=== PATIENT | male | born 1985 | race African-American/Black ===

== ENCOUNTER 2019-03-12 17:57 | Emergency (ER) | payer MEDICAID, SELFPAY ==
[2019-03-12 17:59] VITALS: BP 137/82; PULSE 82; RESP 16; TEMP 36.8; O2SAT 100; BMI 26.6
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
[2019-03-12] MEDS: Acetaminophen 500 MG Tablet 1000 MG PO (19:36)
[2019-03-12 20:22] VITALS: BP 132/80; PULSE 84; RESP 17; O2SAT 97
== END 2019-03-12 20:21 | disposition home or self-care (01) ==
PROVIDERS: Emergency Provider Emergency Medicine
DX: S06.0X9A Concussion with loss of consciousness of unspecified duration, initial encounter (principal); S16.1XXA Strain of muscle, fascia and tendon at neck level, initial encounter; S29.012A Strain of muscle and tendon of back wall of thorax, initial encounter; S39.012A Strain of muscle, fascia and tendon of lower back, initial encounter; S63.601A Unspecified sprain of right thumb, initial encounter; V89.2XXA Person injured in unspecified motor-vehicle accident, traffic, initial encounter; Y93.9 Activity, unspecified; Y92.9 Unspecified place or not applicable
CPT/HCPCS: 70450; 72070; 72100; 72125; 73130; 99283